=== PATIENT | female | born 1985 | race American Indian/Alaskan Native ===

== ENCOUNTER → 2022-04-19 | Outpatient (CLI) | payer MEDICAID | END | disposition home or self-care (01) | LOC: SLR 11:00 | PROVIDERS: ATTEND Surgery | DX: G47.30 Sleep apnea, unspecified (principal) | CPT/HCPCS: G0399 ==

== ENCOUNTER 2022-04-30 09:30 | Outpatient (CLI) | payer MEDICAID ==
--- NOTE | 2022-04-30 11:07 | Fluoroscopy Report ---
. BARIUM SWALLOW Indication: E66.01. Technique: Single and double contrast barium technique utilized to evaluate the esophagus. FINDINGS: To begin the exam, swallowing was evaluated in the lateral position under direct fluorosco py. Swallowing was normal. No mucosal irregularity, mass, mass effect, or critical stenosis. There were no abnormal tertiary c ontractions as seen with dysmotility. No gastroesophageal reflux. IMPRESSION: Unremarkable exam. Fluoroscopic time: 1.0 minutes Number of fluoroscopic images: 20 Signer Name: Rafael Gutierrez Jr, MD Signed: 04/30/2022 11:02 AM Workstation Name: [id number]
== END 2022-04-30 09:31 | disposition home or self-care (01) ==
LOC: FLUORO 09:30
PROVIDERS: ATTEND Surgery
DX: E66.01 Morbid (severe) obesity due to excess calories (principal); K30 Functional dyspepsia
CPT/HCPCS: 74220

== ENCOUNTER 2022-06-04 09:16 | Outpatient (CLI) | payer MEDICAID ==
--- NOTE | 2022-06-04 10:28 | XRay Report ---
CHEST 2 VIEWS INDICATION / CLINICAL INFORMATION: ENCOUNTER FOR OTHER PREPROCEDURAL EXAMINATION. FINDINGS: SUPPORT DEVICES: None. HEART / MEDIASTINUM: No significant abnormality. LUNGS / PLEURA: No significant pulmonary or pleural abnormality. No pneumothorax. ADDITIONAL FINDINGS: No significant additional findings. IMPRESSION: 1. No acute findings. Signer Name: Calixto Luther MD Signed: 06/04/2022 10:23 AM Workstation Name: [employer]
== END 2022-06-04 09:17 | disposition home or self-care (01) ==
LOC: XRAY 09:16
PROVIDERS: ATTEND Surgery
DX: Z01.818 Encounter for other preprocedural examination (principal); E66.01 Morbid (severe) obesity due to excess calories
CPT/HCPCS: 71046

== ENCOUNTER 2022-06-21 06:08 | Inpatient (IN) | payer MEDICAID ==
[2022-06-17 09:39] LABS: Hematocrit 35.7 % (30.3-42.9); Hemoglobin 12.1 gm/dl (10.1-14.3); Mean Corpuscular HGB Conc 34 % (30-34); Mean Corpuscular Volume 86 fl (79-97); Platelet Count 309 K/mm3 (140-440); Red Blood Count 4.17 M/mm3 (3.65-5.03); Red Cell Distribution Width 12.8 % (13.2-15.2)
[2022-06-17 10:01] LABS: Alanine Aminotransferase 14 units/L (7-56); Albumin 4.1 g/dL (3.9-5); Blood Urea Nitrogen 14 mg/dL (7-17); Hemolysis Index 4
[2022-06-17 10:03] LABS: BUN/Creatinine Ratio 28
--- NOTE | 2022-06-17 10:04 | Anesthesia Consultation ---
Anesthesia Consult and Med Hx Date of service: 06/21/22 - Airway Anesthetic Teeth Evaluation: Good (Jagged front teeth) ROM Head & Neck: Adequate Mental/Hyoid Distance: Adequate Mallampati Class: Class III Intubation Access Assessment: Possibly Difficult - Pre-Operative Health Status ASA Pre-Surgery Classification: ASA3 Proposed Anesthetic Plan: General - Pulmonary Hx Smoking: Yes (FORMER SMOKER. STOPPED 01/2021.) Hx Asthma: No Hx Respiratory Symptoms: No (+2FS) COPD: No Hx Pneumonia: No Hx Sleep Apnea: No - Cardiovascular System Hx Hypertension: Yes Hx Coronary Artery Disease: No - Central Nervous System Hx Psychiatric Problems: No - Gastrointestinal Hx Gastroesophageal Reflux Disease: No - Endocrine Hx Liver Disease: No Hx Non-Insulin Dependent Diabetes: Yes (PRE HgbA1C 5.9) - Hematic Hx Anemia: No Hx Sickle Cell Disease: No - Other Systems Hx Alcohol Use: No Hx Substance Use: No Hx Cancer: No Hx Obesity: Yes - Additional Comments Anesthesia Medical History Comments: Has cardiac, pulmonary, med, and psych clearances
[~2022-06-21 06:08] MED LIST: ACETAMINOPHEN IV 1,000 MG/100 ML BOTTLE IV NR; ENOXAPARIN 40 MG/0.4 ML INJ SUB-Q NR; GABAPENTIN 500 MG/10 ML ORAL LIQD PO NR; MIDAZOLAM 2 MG/2 ML INJ IV NR; SCOPOLAMINE TRANSDERMAL PATCH 72 HR TD NR; methOCARBAMOL 1,000 MG in SODIUM CHLORIDE 0.9% 250ML 250 ML IV NR; metroNIDAZOLE/NS 500 MG/100 ML 500 MG/100 ML BAG IV NR
[2022-06-21] MEDS ORDERED: BACTERIOSTATIC SODIUM CHLORIDE 0.9% 30 ML VIAL INFILTRATI ONE (06:59)
[2022-06-21] MEDS: LACTATED RINGERS 1,000 ML IV SCH ×2 (07:00→18:38)
--- NOTE | 2022-06-21 07:28 | Anesthesia Day of Surgery ---
Anesthesia Day of Surgery - Day of Surgery Patient Examined: Yes Patient H&P Reviewed: Yes Patient is NPO: Yes Cardiac Clearance: Yes
[2022-06-21] MEDS ORDERED: ONDANSETRON 4 MG/2 ML INJ IV PRN ×2 (07:29→10:00)
[2022-06-21] MEDS ORDERED: fentaNYL 100 MCG/2 ML INJ IV PRN (07:29)
[2022-06-21] MEDS ORDERED: SUGAMMADEX SODIUM 200 MG/2 ML VIAL IV ONE (07:32)
[2022-06-21] MEDS ORDERED: MAGNESIUM SULFATE 2 GM/50 ML BAG IV ONE (07:32)
[2022-06-21] MEDS ORDERED: KETAMINE/STERILE WATER 50 MG/ML SYRINGE ONE (07:34)
[2022-06-21] MEDS ORDERED: ROCURONIUM 50 MG/5 ML INJ IV ONE (07:34)
[2022-06-21] MEDS ORDERED: SODIUM CHLORIDE P/F VIAL 10 ML 10 ML ONE (07:39)
[2022-06-21] MEDS ORDERED: BUPIVACAINE/PF (0.25%) 2.5 MG/ML 30 ML VIAL INFILTRATI ONE ×2 (07:48→09:22)
[2022-06-21] MEDS ORDERED: LIDOCAINE 1%/EPINEPHRINE 1:100,000 VIAL (20 ML) INFILTRATI ONE ×2 (07:49→09:23)
[2022-06-21] MEDS ORDERED: SODIUM CHLORIDE 0.9% IRR 1,500 ML BOTTLE IR ONE (09:22)
[2022-06-21] MEDS ORDERED: KETOROLAC 30 MG/1 ML INJ ONE (09:45)
[2022-06-21] MEDS ORDERED: hydrALAZINE 20 MG/1 ML INJ IV PRN (10:00)
[2022-06-21] MEDS ORDERED: MORPHINE 2 MG/1 ML INJ IV PRN (10:00)
[2022-06-21] MEDS ORDERED: METOCLOPRAMIDE 10 MG/2 ML INJ IV PRN (10:00)
[2022-06-21] MEDS ORDERED: HYDROmorphone 0.5 MG/0.5 ML INJ IV PRN ×2 (10:00)
[2022-06-21] MEDS ORDERED: SIMETHICONE 80 MG CHEW TAB PO PRN (10:00)
[2022-06-21] MEDS ORDERED: LACTATED RINGERS 1,000 ML IV SCH (10:00)
[2022-06-21] MEDS ORDERED: ENOXAPARIN 40 MG/0.4 ML INJ SUB-Q SCH (10:00)
--- NOTE | 2022-06-21 10:06 | Operative Report ---
Operative Report Operative Report: DATE:06/21/2022 Surgeon: Travis Barrios MD Brick Paver surgeon: Serg Kwon CSA MD Pre-op Dx: morbid obesity Post-op Dx: morbid obesity Procedure: 1. laparoscopic sleeve gastrectomy, Anesthesia: GETA, TAP block EBL: <10ml Specimen: gastric remnant Complication: none immediate Indication: 36 year old female with a history of morbid obesity and htn . Pt is here for sleeve gastrectomy for weight loss to achieve healthier weight and improve or resolve her co-morbidities. She expressed understanding of the risks and benefits. PROCEDURE IN DETAIL: After consent was reviewed, patient was taken back to the operating room, where patient was placed supine on the bed with both arms out. The patient's legs were doubly strapped to the bed. Patient had a foot board in place. Patient had a body warmer placed by anesthesia. General anesthesia was induced with successful endotracheal intubation. Patient was then prepped and draped in normal sterile surgical fashion. After a time-out was called, I made a stab incision in the left subcostal area and placed a Veress needle through this incision and insufflated the abdomen to 15 mmHg pressure. I then counted down a handsbreadth below the xiphoid process in the midline and slightly left lateral injected local anesthetic and made about 1 cm transverse incision. I then used a 5-mm Optiview trocar to enter into the abdomen. There was no gross injury to any intra-abdominal structures. I then placed a 30-degree scope through this port and inspected the abdomen. I then placed a 5-mm port in the right upper quadrant, and 1 epigastric area below the costovertebral angle. I then placed a 15-mm port about a handsbreadth in the right mid abdomen. After which a 5mm port was placed in left upper quadrant port along the anterior axillary line in a similar fashion. A liver retractor was placed to the epigastric port to elevate the left lateral lobe and liver. The anterior gastric fat pad was excised. Starting approximately 6 cm proximal to the pylorus, using a Enseal device the short gastrics were taken all the way to the left senia. Once the lateral portion of the stomach was mobile anesthesia passed a 40 [place] bougie along the medial aspect to act as a stent. Using serial firings of endoscopic stapler to gold, followed by 4 blue, the lateral portion of the stomach was transected making sure to did not close to the 2 cm to the incisura. All staple loads were supported with Ethicon buttress strips. The sleeve stomach was seen to be without kink obstruction or twisting. The pressure was decreased to 10 mmHg. The staple line was inspected for approximately 5 minutes. There was no significant bleeding appreciated except for a slight loose at the most distal portion of the staple line. Bleeding was minimal and easily controlled with minimal cautery. Vistaseal was then sprayed along the entirety of the staple line. The liver retractor was removed. This was after the gastric remnant was grasped and pulled into the 15 mm trocar site. The stomach was extracted via the 15 mm trocar site. After the fascia had to be stretched with a Shantel clamp to easily remove the stomach, the fascia was closed using a clinton vish device at the level of the fascia with an 0 PDS. trocars were removed under direct visualization. A TAP block was performed in transverse abdominis plane at the mid axillary line bilaterally using 60cc of 0.25% marcaine. All skin incisions were closed with 4-0 Monocryl followed by Dermabond. Patient was awoken, extubated, and taken to recovery stable condition. All counts were correct.
[2022-06-21] MEDS: ACETAMINOPHEN IV 1,000 MG/100 ML BOTTLE IV SCH ×3 (11:08→21:56)
[2022-06-21] MEDS: PANTOPRAZOLE 40 MG INJ IV SCH (11:09)
--- NOTE | 2022-06-21 11:51 | Post Anesthesia Evaluation ---
- Post Anesthesia Evaluation Patient Participated: Yes Airway Patent: Yes Stable Respiratory Function: Yes Nausea/Vomiting: No Temp > 96.8F: Yes Pain Manageable: Yes Adequeate Hydration: Yes Anesthesia Complications: No
[2022-06-21] MEDS: KETOROLAC 30 MG/1 ML INJ IV SCH ×3 (12:48→21:57)
[2022-06-21] MEDS: metroNIDAZOLE/NS 500 MG/100 ML 500 MG/100 ML BAG IV SCH (17:41)
[2022-06-21] MEDS ORDERED: ceFAZolin/NS 1 GM/50 ML 1 GM/50 ML BAG IV SCH (18:00)
[2022-06-22] MEDS: metroNIDAZOLE/NS 500 MG/100 ML 500 MG/100 ML BAG IV SCH (02:36)
[2022-06-22] MEDS: ACETAMINOPHEN IV 1,000 MG/100 ML BOTTLE IV SCH (04:45)
[2022-06-22] MEDS: KETOROLAC 30 MG/1 ML INJ IV SCH (04:45)
[2022-06-22 08:51] LABS: Basophils % (Auto) 0.2 % (0.0-1.8); Hematocrit 35.9 % (30.3-42.9); Lymphocytes # (Auto) 1.2 K/mm3 (1.2-5.4); Lymphocytes % (Auto) 21.1 % (13.4-35.0); Mean Corpuscular HGB Conc 33 % (30-34); Mean Corpuscular Volume 86 fl (79-97); Monocytes # (Auto) 0.5 K/mm3 (0.0-0.8); Monocytes % (Auto) 9.3 % (0.0-7.3); Platelet Count 332 K/mm3 (140-440); Red Blood Count 4.16 M/mm3 (3.65-5.03); Red Cell Distribution Width 12.7 % (13.2-15.2)
[2022-06-22 09:19] LABS: Alanine Aminotransferase 17 units/L (7-56); Albumin 3.9 g/dL (3.9-5); Blood Urea Nitrogen 5 mg/dL (7-17); Calcium 8.5 mg/dL (8.4-10.2); Hemolysis Index 17
[2022-06-22 09:22] LABS: BUN/Creatinine Ratio 10
[2022-06-22] MEDS ORDERED: amLODIPine 10 MG TAB PO SCH (10:00)
[2022-06-22] MEDS ORDERED: ENOXAPARIN 40 MG/0.4 ML INJ SUB-Q SCH (10:00)
[2022-06-22] MEDS: PANTOPRAZOLE 40 MG INJ IV SCH (10:58)
--- NOTE | 2022-06-22 15:10 | Post Anesthesia Evaluation ---
- Post Anesthesia Evaluation Patient Participated: Yes Airway Patent: Yes Stable Respiratory Function: Yes Nausea/Vomiting: No Temp > 96.8F: Yes Pain Manageable: Yes Adequeate Hydration: Yes Anesthesia Complications: No Block Receding Appropriately: Not Applicable Patient on Ventilator: No
[2022-06-22 16:10] VITALS: BP 141/81
--- NOTE | 2022-06-22 17:19 | Discharge Summary ---
Providers - Providers Date of Admission: 06/21/22 06:08 Date of discharge: 06/22/22 Attending physician: HAMILTON ALBERTO MD 06/21/22 10:01 Physical Therapy Evaluation and Treat [CONS] Routine Comment: Reason For Exam: s/p bariatric surgery Primary care physician: JEAN CARLOS MENON Hospitalization Reason for admission: bariatric surgery Condition: Good Procedures: lap gastric sleeve Hospital course: Patient had an uneventful lap gastric sleeve for the treatment of morbid obesity. Patient recovered well remaining afebrile and stable. Patient had adequate pain control and tolerated liquids getting a least 30 ounces without difficulty. Patient was discharged on postoperative day #1 showing no gross clinical signs of leak or bleeding. Patient will follow-up in the office in 2 weeks. Disposition: 01 HOME / SELF CARE / HOMELESS Final Discharge Diagnosis (Prints w/discharge instructions): Morbid obesity, htn Core Measure Documentation - Palliative Care Palliative Care/ Comfort Measures: Not Applicable - Core Measures Any of the following diagnoses?: none Exam - Constitutional Vitals: Temp Pulse Resp BP Pulse Ox 98.1 F 80 17 141/81 100 06/22/22 15:38 06/22/22 15:38 06/22/22 15:38 06/22/22 15:38 06/22/22 15:38 General appearance: Present: no acute distress, obese - EENT Eyes: Present: PERRL ENT: hearing intact - Respiratory Respiratory effort: normal - Cardiovascular Heart Sounds: Present: S1 & S2 - Extremities Extremities: no ischemia - Abdominal General gastrointestinal: Present: soft, non-tender Plan Activity: advance as tolerated Diet: clear liquids Wound: open to air, keep clean and dry Follow up with: JEAN CARLOS MENON POSTPARTUM NURSE [Primary Care Provider] - 7 Days
[2022-06-24] MEDS ORDERED: SCOPOLAMINE TRANSDERMAL PATCH 72 HR TD SCH (10:00)
== END 2022-06-22 17:00 | disposition home or self-care (01) | DRG 621 ==
LOC: 3A 06:08 → 4A 09:07
PROVIDERS: ADMIT Surgery; ATTEND Surgery
PROC: 0DB64Z3 Excision of Stomach, Percutaneous Endoscopic Approach, Vertical (ICD-10-PCS; principal; 2022-06-21)
DX: E66.01 Morbid (severe) obesity due to excess calories (principal); Z20.822 Contact with and (suspected) exposure to COVID-19; I10 Essential (primary) hypertension; E11.9 Type 2 diabetes mellitus without complications; Z88.8 Allergy status to other drugs, medicaments and biological substances; Z87.891 Personal history of nicotine dependence; Z68.42 Body mass index [BMI] 45.0-49.9, adult
CPT/HCPCS: 36415; 80053; 81025; 82962; 85025; 85027; 88307; 88342; G0378; J3490; J7121; J7517; C9113; J0131; J0690; J1650; J1885; J2250; J2405; J2704; J3475; J7120; U0003